=== PATIENT | male | born 1965 | race Two or more races ===

== ENCOUNTER 2017-07-02 16:54 | Emergency (ER) | payer OTHER ==
[~2017-07-02] VITALS: Ht 185.4 cm; Wt 95.0 kg
[2017-07-02 17:42] LABS: URINE BILIRUBIN - DIPSTICK NEGATIVE (NEGATIVE); URINE BLOOD DIPSTICK NEGATIVE (NEGATIVE); URINE COLOR YELLOW; URINE GLUCOSE - DIPSTICK NEGATIVE (NEGATIVE); URINE KETONE NEGATIVE (NEGATIVE); URINE LEUK ESTERASE NEGATIVE (NEGATIVE); URINE NITRITE - DIPSTICK NEGATIVE (Negative); URINE PROTEIN - DIPSTICK NEGATIVE (NEG-TRACE); URINE SPECIFIC GRAVITY >=1.030; URINE UROBILINOGEN - DIPSTICK 0.2 E.U./dL (0.2)
[2017-07-02 17:56] LABS: URINE CLARITY CLEAR
[2017-07-02 18:03] LABS: HEMATOCRIT 49.6 % (39.0-50.0); IMMATURE GRANULOCYTES 0.3 % (0.0-1.0); MEAN CELL VOLUME 85.4 fL CALC (80.0-100.0); MEAN CORPUSCULAR HGB 29.3 pG CALC (26.0-32.0); MEAN CORPUSCULAR HGB CONC 34.3 g/L CALC (32.0-36.0); NEUT# 2.91 thou/uL (1.82-7.42); RED BLOOD COUNT 5.81 mill/uL (4.70-6.10); RED CELL DISTRI WIDTH 12.3 % (11.5-15.5)
[2017-07-02 18:18] LABS: ALKALINE PHOSPHATASE 79 u/l (38-126); ANION GAP 18 (6-22 (CALC)); BILIRUBIN, TOTAL 0.7 mg/dL (0.0-1.4); BUN 17 mg/dL (9-20); BUN/CREATININE RATIO 15 (12-20 (CALC)); CALCIUM 10.1 mg/dL (8.4-10.2); CARBON DIOXIDE 26 mmol/l (22-30); CHLORIDE 105 mmol/l (95-108); CREATININE 1.1 mg/dL (0.7-1.3); GFR > 60 ML/MIN (>=60 (CALC)); GFR FOR AFR.AMER. > 60 ML/MIN (>=60 (CALC)); GLUCOSE 118 mg/dL (75-110); LIPASE 165 u/l (23-300); SGOT/AST 29 u/l (17-59); SGPT/ALT 45 u/l (21-72); SODIUM 144 mmol/l (137-146); TOTAL PROTEIN 7.9 g/dL (6.3-8.2)
[2017-07-02] MEDS ORDERED: CLONIDINE0.2 MG PO (19:55)
[2017-07-02 20:50] VITALS: BP 176/99
== END 2017-07-02 20:50 | disposition home or self-care (01) | DRG 552 ==
LOC: ED 16:54
PROVIDERS: Family Medicine
DX: M54.5 Low back pain (principal); I10 Essential (primary) hypertension; N40.1 Benign prostatic hyperplasia with lower urinary tract symptoms; R35.0 Frequency of micturition; R30.0 Dysuria; R10.2 Pelvic and perineal pain; R10.32 Left lower quadrant pain; R10.31 Right lower quadrant pain; R11.0 Nausea
CPT/HCPCS: Q9967